=== PATIENT | female | born 1995 | race American Indian/Alaskan Native ===

== ENCOUNTER 2017-10-18 17:04 | Emergency (ER) | payer SELFPAY ==
[2017-10-18 19:17] LABS: Bacteria,Urine 1+ /HPF (Negative); Bilirubin,Urine NEG (Negative); Blood,Urine LG (Negative); Color,Urine Yellow (Yellow); Protein,Urine <15 mg/dL mg/dL (Negative); Urobilinogen,Urine < 2.0 mg/dL (<2.0)
[2017-10-18 19:18] LABS: HCG Qualitative,Urine Negative (Negative)
--- NOTE | 2017-10-18 21:30 | Emergency Department Report ---
ED General Adult HPI - General Chief complaint: Pain General Stated complaint: PAIN PRIVATE/FATIGUE Time Seen by Provider: 10/18/17 21:25 Source: patient Mode of arrival: Ambulatory Limitations: No Limitations - History of Present Illness Initial comments: 22-year-old -[place] female presents to the emergency room for body aches so throat and bumps or nerve vaginal area with pain. Patient reports that the body aches and sore throat she's had since 10/09/2017. She reports that she is having some painful bumps on her vaginal area times one week. Patient denies any fever admits to chills times one day. She admits to headache and neck pain sore throat. She has no past medical history currently takes no medications and she has an allergy to penicillin. Patient currently has no primary care at this time. Patient is currently on her menses and is started on 10/14/2017. A stenotic abdominal pain denies any pelvic pain no dysuria. -: week(s) (1) Location: genitals Radiation: non-radiation Consistency: intermittent Associated Symptoms: headaches, rash (genital bumps that are painful). denies: fever/chills (chills) Treatments Prior to Arrival: none - Related Data Previous Rx's Medication Instructions Recorded Last Taken Type Ibuprofen [Motrin 800 MG tab] 800 mg PO Q8HR PRN #15 tablet 10/18/17 Unknown Rx Valacyclovir HCl [Valtrex] 1,000 mg PO BID #14 tab 10/18/17 Unknown Rx Allergies Allergy/AdvReac Type Severity Reaction Status Date / Time Penicillins Allergy Unknown Verified 10/18/17 17:12 ED Review of Systems ROS: Stated complaint: PAIN PRIVATE/FATIGUE Other details as noted in HPI Comment: All other systems reviewed and negative Constitutional: chills, other (body aches). denies: fever ENT: throat pain Respiratory: denies: cough, shortness of breath, wheezing Cardiovascular: denies: chest pain, palpitations Endocrine: no symptoms reported Gastrointestinal: denies: abdominal pain, nausea, diarrhea Skin: lesions (painful on vaginal area) Neurological: headache Psychiatric: denies: anxiety, depression Hematological/Lymphatic: denies: easy bleeding, easy bruising ED Past Medical Hx - Past Medical History Previous Medical History?: No - Surgical History Past Surgical History?: No - Social History Smoking Status: Never Smoker Substance Use Type: None - Medications Home Medications: Home Medications Medication Instructions Recorded Confirmed Last Taken Type Ibuprofen [Motrin 800 MG tab] 800 mg PO Q8HR PRN #15 tablet 10/18/17 Unknown Rx Valacyclovir HCl [Valtrex] 1,000 mg PO BID #14 tab 10/18/17 Unknown Rx ED Physical Exam - General Limitations: No Limitations General appearance: alert, in no apparent distress - Head Head exam: Present: atraumatic, normocephalic - Eye Eye exam: Present: EOMI - ENT ENT exam: Present: mucous membranes moist - Expanded ENT Exam Expanded Throat exam: Positive: tonsillomegaly, tonsillar exudate. Negative: tonsillar erythema - Neck Neck exam: Present: tenderness (right tonsillary), full ROM - Respiratory Respiratory exam: Present: normal lung sounds bilaterally. Absent: respiratory distress - Cardiovascular Cardiovascular Exam: Present: regular rate, normal rhythm. Absent: systolic murmur, diastolic murmur, rubs, gallop - GI/Abdominal GI/Abdominal exam: Present: soft, normal bowel sounds. Absent: distended, tenderness - External exam: Present: lesions - Extremities Exam Extremities exam: Present: normal inspection - Back Exam Back exam: Present: normal inspection - Neurological Exam Neurological exam: Present: alert, oriented X3 - Psychiatric Psychiatric exam: Present: normal affect, normal mood - Skin Skin exam: Present: warm, dry, intact, normal color. Absent: rash ED Course Vital Signs 10/18/17 17:12 Temperature 98.3 F Pulse Rate 89 Respiratory 16 Rate Blood Pressure 116/70 O2 Sat by Pulse 99 Oximetry ED Medical Decision Making - Medical Decision Making Patient has been evaluated by this provider fast track. Lesions on the vaginal area Swollen tonsil with exudate Rapid strep sent out. Discussed patient she most likely has genital herpes. Discussed patient place her on Valtrex for 5 days. And she needs to follow up with the health department to do definitive testing. Critical care attestation.: If time is entered above; I have spent that time in minutes in the direct care of this critically ill patient, excluding procedure time. ED Disposition Clinical Impression: Genital lesion, female, Viral syndrome Disposition: DC- TO HOME OR SELFCARE Is pt being admited?: No Does the pt Need Aspirin: No Condition: Stable Instructions: Genital Herpes Simplex (ED), Viral Syndrome (ED) Additional Instructions: Please take medication as prescribed. Please follow-up with the health department for further testing. Prescriptions: Ibuprofen [Motrin 800 MG tab] 800 mg PO Q8HR PRN #15 tablet PRN Reason: Pain , Severe (7-10) Valacyclovir HCl [Valtrex] 1,000 mg PO BID #14 tab Referrals: PRIMARY CARE, [Primary Care Provider] - 3-5 Days [facility] [Outside] - 3-5 Days [facility] [Outside] - 3-5 Days [facility] [Outside] - 3-5 Days
[2017-10-19 00:48] VITALS: BP 120/70
== END 2017-10-18 23:52 | disposition home or self-care (01) ==
LOC: ED 17:04
DX: B34.9 Viral infection, unspecified (principal); Z90.89 Acquired absence of other organs; Z88.0 Allergy status to penicillin; Z79.899 Other long term (current) drug therapy
CPT/HCPCS: 81001; 81025; 87116; 87430; 99283